=== PATIENT | female | born 1990 | race Caucasian/White ===

== ENCOUNTER 2019-03-16 16:24 | Emergency (ER) | payer OTHER ==
[~2019-03-16] VITALS: Ht 175.3 cm; Wt 90.7 kg
--- NOTE | 2019-03-16 16:25 | NUR ---
Dr Nguyen at the bedside for MSE.
[2019-03-16] MEDS ORDERED: DULO60CA45 PO (16:49)
[2019-03-16] MEDS ORDERED: CLON1TAB PO (16:49)
[2019-03-16] MEDS ORDERED: ACET-2154 PO (16:49)
[2019-03-16] MEDS ORDERED: SUCR1TAB31 PO (16:49)
[2019-03-16] MEDS ORDERED: LEVE500T9 PO (16:49)
[2019-03-16 17:13] LABS: BASOPHILS # (AUTO) 0.1 K/uL (0.0-8.0); BASOPHILS % (AUTO) 1.1 % (0.0-2.0); EOSINOPHILS # (AUTO) 0.1 K/uL (0.0-0.7); HEMATOCRIT 38.6 % (31.2-41.9); LYMPHOCYTES % (AUTO) 34.7 % (20.5-51.5); MEAN CORPUSCULAR HEMOGLOBIN 31.5 uug (24.7-32.8); MEAN CORPUSCULAR HGB CONC 34 g/dL (32.3-35.6); MEAN CORPUSCULAR VOLUME 93.8 fL (75.5-95.3); MONOCYTES # (AUTO) 0.4 K/uL (2.0-10.0); MONOCYTES % (AUTO) 7.5 % (0.0-11.0); NEUTROPHILS # (AUTO) 3.3 K/uL (1.8-8.9); NEUTROPHILS % (AUTO) 55.7 % (38.5-71.5); PLATELET COUNT (AUTO) 160 K/uL (179-408); RED BLOOD CELL COUNT(AUTO) 4.12 MIL/uL (3.63-4.92); WHITE BLOOD COUNT (AUTO) 5.9 K/uL (3.8-11.8)
[2019-03-16 17:25] LABS: *BILIRUBIN,URIN NEGATIVE (NEGATIVE); *BLOOD, URINE 1+ (NEGATIVE); *CLARITY,URINE CLEAR (CLEAR); *COLOR,URINE YELLOW (YELLOW); *KETONES,URINE NEGATIVE (NEGATIVE); *UROBILINOGEN,URINE 0.2 E.U./dl (NORMAL); LEUKOCYTE ESTERASE ,URINE NEGATIVE (NEGATIVE); NITRITE, URINE NEGATIVE (NEGATIVE); PH,URINE 5.5 (5.0-8.0); UGLUCOSE NEGATIVE (NEGATIVE)
[2019-03-16 17:28] LABS: BILIRUBIN,DIRECT 0.1 mg/dL (0.0-0.2); BILIRUBIN,TOTAL 0.1 mg/dL (0.2-1.0); CREATININE 0.6 mg/dL (0.6-1.3); POTASSIUM 4.1 mmol/L (3.5-5.1); TOTAL PROTEIN, SERUM 7.2 g/dL (6.4-8.2)
[2019-03-16] MEDS ORDERED: HALOPERIDOL LACTATE 5 MG/1 ML VIAL IM ONE (17:30)
[2019-03-16] MEDS ORDERED: CHLORDIAZEPOXIDE HCL 25 MG CAPSULE ONE (17:30)
[2019-03-16] MEDS ORDERED: CHLORDIAZEPOXIDE HCL 25 MG CAPSULE PO ONE (17:30)
[2019-03-16] MEDS ORDERED: diphenhydrAMINE 50 MG/1 ML VIAL IM ONE (17:30)
--- NOTE | 2019-03-16 17:30 | NUR ---
PT REQUESTING ATIVAN, WHEN MD REFUSED GIVING HER ATIVAN SINCE HER ETOH LEVEL IS TOO HIGH. PT BECOMES AGITATED AND START PUSHING STAFF AND BEING VERBALLY ABUSIVE. SERVANDO BURNETTE CALLED.
[2019-03-16] MEDS ORDERED: HALOPERIDOL LACTATE 5 MG/1 ML VIAL ONE (17:35)
[2019-03-16] MEDS ORDERED: diphenhydrAMINE 50 MG/1 ML VIAL ONE (17:35)
[2019-03-16 17:40] LABS: ETHANOL 344 MG/DL (0-0)
[2019-03-16 17:43] LABS: BACTERIA,URINE NONE SEEN /HPF (NONE SEEN); SQUAMOUS EPITHELIAL CELL,UR FEW /HPF (NONE SEEN); WBC,URINE 0-3 /HPF (0-3)
[2019-03-16] MEDS ORDERED: OLANZAPINE 10 MG VIAL IM ONE ×2 (17:52→18:00)
--- NOTE | 2019-03-16 18:12 | NUR ---
PT IS CALM, COOPERATIVE AND DROWSY AT THIS TIME, FAMILY AT THE BEDSIDE.
--- NOTE | 2019-03-16 18:21 | NUR ---
Patient is resting comfortably in bed with eyes closed, NAD noted.
--- NOTE | 2019-03-16 21:14 | NUR ---
Spoke to Niranjan, her father, and he stated he will be back in about 30 minutes to pick her up and take her home.
--- NOTE | 2019-03-16 22:00 | NUR ---
Patient discharged to home in stable conditon. Written and verbal after care instructions given. Patient verbalizes understanding of instructions. Patient ambulated with stable gait.
[2019-03-17 01:11] VITALS: BP 142/71
== END 2019-03-16 22:20 | disposition home or self-care (01) ==
LOC: ER 16:24
DX: F10.129 Alcohol abuse with intoxication, unspecified (principal); K21.9 Gastro-esophageal reflux disease without esophagitis; F32.9 Major depressive disorder, single episode, unspecified; F17.200 Nicotine dependence, unspecified, uncomplicated; Z79.899 Other long term (current) drug therapy; Y90.8 Blood alcohol level of 240 mg/100 ml or more
CPT/HCPCS: 36415; 80048; 80076; 81000; 81001; 83690; 84702; 85025; 96372 ×3; 99283; G0480; J1200; J1630; A4663; J2358